=== PATIENT | male | born 1975 | race Caucasian/White ===

== ENCOUNTER 2020-06-02 22:11 | Emergency (ER) | payer SELFPAY ==
[2020-06-02] MEDS ORDERED: Lidocaine 1% w/Epinephrine 1:100K 20 ML VIAL ONE (22:56)
[2020-06-02] MEDS ORDERED: Tetracaine 0.5% PF 4 ML BOT ONE (23:15)
[2020-06-02] MEDS ORDERED: Bacitracin 1 PK ONE (23:20)
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
== END 2020-06-02 23:55 ==
LOC: BURERS 22:11
DX: S02.32XA Fracture of orbital floor, left side, initial encounter for closed fracture (principal); S01.112A Laceration without foreign body of left eyelid and periocular area, initial encounter; F17.210 Nicotine dependence, cigarettes, uncomplicated; Y04.0XXA Assault by unarmed brawl or fight, initial encounter
CPT/HCPCS: 12015; 70450; 70486; 72125